=== PATIENT | male | born 1990 | race Caucasian/White ===

== ENCOUNTER 2022-06-02 09:22 | Emergency (ER) | payer MEDICAID, SELFPAY ==
--- NOTE | 2022-06-02 09:29 | ED.OVERDOSE ---
HPI - Overdose General Chief Complaint: Overdose Stated Complaint: OVERDOSE Time Seen by Provider: 06/02/22 09:28 Source: patient Mode of arrival: EMS Limitations: no limitations History of Present Illness HPI Narrative: 31 yo male using cocaine IV last night comes in with c/o using IV cocaine all night started to feel dizzy and nauseated. The female he was with states she gave him narcan but then told him it didn't spray and EMS never saw the device on scene. The female is also here under the influence complaint: other (substance abuse) Onset (ago): day(s) (symptoms in the past hour) Context: Accidental Overdose: wanted to get high Associated symptoms: nausea/vomiting and other (felt dizzy, passed out) Treatments Prior to Arrival: narcan (supposedly) Related Data Allergies Allergy/AdvReac Type Severity Reaction Status Date / Time No Known Allergies Allergy Verified 06/02/22 09:36 Review of Systems Review of Systems: Constitutional : No Weight loss, No Fever, No Chills ENT/Mouth : No sore throat, No Rhinorrhea Eyes: No Swelling, No Redness Cardiovascular : No Chest Pain, No SOB, NoEdema Respiratory : No Cough, No Sputum, No Wheezing Gastrointestinal : Positive Nausea, Positive Vomiting, no Diarrhea, no abdominal Pain, No Hematochezia, No Melena Genitourinary : No Dysuria, No Urinary Frequency, No Hematuria, No Urgency Musculoskeletal : No joint pain, No Myalgias, No Joint Swelling Skin : No Skin Lesions, No rash Neuro : No Weakness, No Numbness, pos Dizziness, No Headache Psych : No Anxiety/Panic, No Depression Heme/Lymph: No Bruising, No Lymphadenopathy Endocrine : No Polyuria, No Polydipsia All other systems reviewed and are negative. [facility] Past Medical History Attestation statement: The following information was validated with the patient. Medical History Active substance abuse Social History Social History (Updated 06/02/22 @ 09:42 by Nicole Lloyd DO) Patient Tobacco Use Status: Tobacco use Unknown Use of substances other than those prescribed or required for medical reasons: Yes Substance Use Type: Crack/Cocaine Advance Directives: No Advance Directives Information Provided: Yes Physical Exam Vital Signs: Vital Signs: BMI result Body Mass Index 32.7 Appearance: Alert. Oriented X3. No acute distress. Anxious, dry heaving Eyes: Pupils equal, round and reactive to light. ENT: Pharynx normal. Neck: Normal inspection. Neck supple. CVS: Normal heart rate and rhythm. Pulses normal. Respiratory: No respiratory distress. Breath sounds normal. Abdomen: Soft and nontender. Skin: Skin warm and diaphoretic Normal skin color. Normal skin turgor. Extremities: No lower extremity edema. No calf ttp Neuro: Oriented X 3. No motor deficit. No sensory deficit. Course Course Course Narrative: observed x 2 hours, no repeat overdose declines SUDE evaluation will send home with narcan stable for DC MDM - Overdose MDM Narrative Medical decision making narrative: 31 yo male with cocaine abuse became dizzy and sounds like he passed out - feels anxious and nauseated denies CP at this time will obtain EKG, labs, treat with zofran and ativan - basic labs, observe. He agrees to drug screen to see if cocaine had fentanyl in it. Lab Data Result diagrams: 06/02/22 10:35 06/02/22 10:35 Labs: Lab Results 06/02/22 06/02/22 06/02/22 Range/Units 10:35 10:35 10:35 WBC 7.1 (4.8-10.8) X10*3/uL RBC 5.40 (4.60-5.80) X10*6/uL Hgb 16.4 (14.0-18.0) g/dl Hct 45.2 (42.0-52.0) % MCV 83.7 (80.0-98.0) fL MCH 30.4 (27.0-33.0) pg MCHC 36.3 H (31.0-36.0) g/dl RDW 12.6 (11.0-16.0) % Plt Count 218 (160-400) X10*3/uL MPV 11.0 (9.4-12.4) fL Immature Gran % (Auto) 0.3 (0.0-0.4) % Neut % (Auto) 66.9 (45-73) % Lymph % (Auto) 19.8 L (20-40) % [place] % (Auto) 9.9 (2-11) % Eos % (Auto) 1.8 (0-4) % Baso % (Auto) 1.3 (0-2) % Lymph # (Auto) 1.4 (1.2-4.9) X10*3/uL [place] # (Auto) 0.7 (0.1-1.2) X10*3/uL Eos # (Auto) 0.1 (0.0-0.4) X10*3/uL Baso # (Auto) 0.1 (0.0-0.2) X10*3/uL Abs Immat Gran (auto) 0.02 (0.00-0.03) X10*3/uL Absolute Neuts (auto) 4.7 (2.0-8.3) x10*3/uL Absolute Nucleated RBC 0.000 (0.0-0.012) X10*3/uL Nucleated RBC % (auto) 0.0 (0.0-0.2) /100WBC Sodium 138 (135-145) mmol/L Potassium 3.6 (3.3-5.1) mmol/L Chloride 101 (96-108) mmol/L Carbon Dioxide 26 (22-29) mmol/L Anion Gap 15 (12-20) BUN 11 (9-16) mg/dL Creatinine 0.84 (0.5-1.4) mg/dL Estim Creat Clear Calc 175.4 Estimated GFR > 60 Random Glucose 96 (60-115) mg/dL Calcium 9.7 (8.4-10.2) mg/dL Troponin I High Sens 4.5 (<3.5-35.0) ng/L Urine Opiates Screen (Not Detect) Urine Fentanyl Screen (Not Detect) Ur Barbiturates Screen (Not Detect) Ur Phencyclidine Scrn (Not Detect) Ur Amphetamines Screen (Not Detect) U Benzodiazepines Scrn (Not Detect) Urine Cocaine Screen (Not Detect) U Marijuana (THC) Screen (Not Detect) COVID-19 ([facility]) (Negative) COVID-19 Clin Com 06/02/22 06/02/22 Range/Units 10:35 10:35 WBC (4.8-10.8) X10*3/uL RBC (4.60-5.80) X10*6/uL Hgb (14.0-18.0) g/dl Hct (42.0-52.0) % MCV (80.0-98.0) fL MCH (27.0-33.0) pg MCHC (31.0-36.0) g/dl RDW (11.0-16.0) % Plt Count (160-400) X10*3/uL MPV (9.4-12.4) fL Immature Gran % (Auto) (0.0-0.4) % Neut % (Auto) (45-73) % Lymph % (Auto) (20-40) % [place] % (Auto) (2-11) % Eos % (Auto) (0-4) % Baso % (Auto) (0-2) % Lymph # (Auto) (1.2-4.9) X10*3/uL [place] # (Auto) (0.1-1.2) X10*3/uL Eos # (Auto) (0.0-0.4) X10*3/uL Baso # (Auto) (0.0-0.2) X10*3/uL Abs Immat Gran (auto) (0.00-0.03) X10*3/uL Absolute Neuts (auto) (2.0-8.3) x10*3/uL Absolute Nucleated RBC (0.0-0.012) X10*3/uL Nucleated RBC % (auto) (0.0-0.2) /100WBC Sodium (135-145) mmol/L Potassium (3.3-5.1) mmol/L Chloride (96-108) mmol/L Carbon Dioxide (22-29) mmol/L Anion Gap (12-20) BUN (9-16) mg/dL Creatinine (0.5-1.4) mg/dL Estim Creat Clear Calc Estimated GFR Random Glucose (60-115) mg/dL Calcium (8.4-10.2) mg/dL Troponin I High Sens (<3.5-35.0) ng/L Urine Opiates Screen POSITIVE H (Not Detect) Urine Fentanyl Screen POSITIVE H (Not Detect) Ur Barbiturates Screen Not Detected (Not Detect) Ur Phencyclidine Scrn Not Detected (Not Detect) Ur Amphetamines Screen Not Detected (Not Detect) U Benzodiazepines Scrn Not Detected (Not Detect) Urine Cocaine Screen POSITIVE H (Not Detect) U Marijuana (THC) Screen Not Detected (Not Detect) COVID-19 ([facility]) Negative (Negative) COVID-19 Clin Com See Note ECG Data Attestation: I personally reviewed and interpreted this ECG as follows: ECG interpretation date: 06/02/22 ECG interpretation time: 10:08 Interpretation: Rate: 58 Rhythm: sinus bradycardia [place]: normal Normal P waves. Normal ORIN. Normal QRS complex. ST T wave : normal no CORNELIA qTC: normal prior studies: no acute ischemia The study has been interpreted contemporaneously by me. Discharge Plan Discharge Clinical Impression: Cocaine abuse Drug overdose Qualifiers: Encounter type: initial encounter Injury intent: accidental or unintentional Qualified Code(s): T50.901A - Poisoning by unspecified drugs, medicaments and biological substances, accidental (unintentional), initial encounter Patient Disposition: Home, Self-Care Instructions: Cocaine Abuse (ED), Adult Overdose (ED) Additional Instructions: return to ED for any worsening symptoms or concerns your cocaine had fentanyl in it please do not use the rest, please stop using drugs at this time carry narcan with you
--- NOTE | 2022-06-02 09:36 | ECG_ITS ---
Test Reason : weakness Blood Pressure : / mmHG Vent. Rate : 058 BPM Atrial Rate : 058 BPM P-R Int : 142 ms QRS Dur : 094 ms QT Int : 486 ms P-R-T Axes : 012 021 027 degrees QTc Int : 477 ms Sinus bradycardia Otherwise normal ECG No previous ECGs available Referred By: Nicole Lloyd Electronically Signed By:JP GARCIA
[2022-06-02 10:01] VITALS: BP 140/80; PULSE 101; O2SAT 99; BMI 32.7
[2022-06-02] MEDS: Ondansetron ODT 4 MG TAB.RAPDIS TRANSLINGU (10:34)
[2022-06-02] MEDS: LORazepam 1 MG TABLET PO (10:34)
[2022-06-02] MEDS: 0.9 % Sodium Chloride 1,000 ML 999 ML IV (10:37)
[2022-06-02 10:41] LABS: MANUAL DIFF FLAG NO
[2022-06-02 10:45] LABS: Basophils Absolute Auto 0.1 X10*3/uL (0.0-0.2); Basophils Percent Auto 1.3 % (0-2); Eosinophils Absolute Auto 0.1 X10*3/uL (0.0-0.4); Eosinophils Percent Auto 1.8 % (0-4); Hematocrit 45.2 % (42.0-52.0); Hemoglobin 16.4 g/dl (14.0-18.0); Imm Gran Abs Auto 0.02 X10*3/uL (0.00-0.03); Imm Gran Pct Auto 0.3 % (0.0-0.4); Lymphocytes Absolute Auto 1.4 X10*3/uL (1.2-4.9); Lymphocytes Percent Auto 19.8 % (20-40); Mean Corpuscular HGB Conc 36.3 g/dl (31.0-36.0); Mean Corpuscular Hemoglobin 30.4 pg (27.0-33.0); Mean Corpuscular Volume 83.7 fL (80.0-98.0); Monocytes Absolute Auto 0.7 X10*3/uL (0.1-1.2); Monocytes Percent Auto 9.9 % (2-11); Neutrophils Absolute Auto 4.7 x10*3/uL (2.0-8.3); Neutrophils Percent Auto 66.9 % (45-73); Platelet Count 218 X10*3/uL (160-400); Red Cell Distribution Width 12.6 % (11.0-16.0); White Blood Count 7.1 X10*3/uL (4.8-10.8)
[2022-06-02 10:58] LABS: Anion Gap 15 (12-20); Blood Urea Nitrogen 11 mg/dL (9-16); Calcium 9.7 mg/dL (8.4-10.2); Carbon Dioxide 26 mmol/L (22-29); Chloride 101 mmol/L (96-108); Creatinine Clr Calc Pharmacy 175.4; Estimated Glomerular Filt Rate > 60; Glucose Random 96 mg/dL (60-115); Potassium 3.6 mmol/L (3.3-5.1); Sodium 138 mmol/L (135-145)
[2022-06-02 11:04] LABS: COVID-19 Test Negative (Negative)
[2022-06-02 11:05] LABS: Troponin-I High Sensitivity 4.5 ng/L (<3.5-35.0)
[2022-06-02 11:06] LABS: Amphetamine Screen Urine Not Detected (Not Detect); Barbiturates, Urine Not Detected (Not Detect); Benzodiazepines Screen Urine Not Detected (Not Detect); Cannabinoid Screen Urine Not Detected (Not Detect); Cocaine Screen Urine POSITIVE (Not Detect); Fentanyl, urine POSITIVE (Not Detect); Opiate Screen Urine POSITIVE (Not Detect); Phencyclidine Screen Urine Not Detected (Not Detect)
== END 2022-06-02 12:25 | disposition home or self-care (01) ==
PROVIDERS: Emergency Provider Emergency Medicine
DX: T40.5X1A Poisoning by cocaine, accidental (unintentional), initial encounter (principal); Y92.9 Unspecified place or not applicable; R42 Dizziness and giddiness; F14.19 Cocaine abuse with unspecified cocaine-induced disorder; Z20.822 Contact with and (suspected) exposure to COVID-19; Z79.899 Other long term (current) drug therapy
CPT/HCPCS: 80048; 80307; 84484; 85025; 87635; 93005; 96360; 99284; 99285

== ENCOUNTER 2023-01-06 09:01 | Emergency (ER) | payer OTHER, SELFPAY ==
[2023-01-06 09:09] VITALS: BP 132/80; BP 134/68; PULSE 104; PULSE 69; RESP 18; TEMP 37; O2SAT 97; O2SAT 99; BMI 30.5
--- NOTE | 2023-01-06 09:34 | ED_ITS ---
HPI - General Adult General Chief complaint: ETOH/Substance Use Stated complaint: OD Cocaine Per EMS Time Seen by Provider: 01/06/23 09:29 Source: patient Mode of arrival: EMS Limitations: no limitations History of Present Illness HPI narrative: Pt states used cocain all night ,then ingested 1 pill ,then states isela I narcan my self and after using narcan feels anxious Onset (ago): hour(s) (6) Radiation: non-radiation Severity: mild Exacerbating factors: none Associated symptoms: denies other symptoms Treatments prior to arrival: none Related Data Allergies Allergy/AdvReac Type Severity Reaction Status Date / Time No Known Allergies Allergy Verified 01/06/23 09:15 Review of Systems Constitutional: Constitutional: Denies fever(s) and Denies headache(s) Eyes: Eyes: Denies blurry vision ENT: Denies headache(s) Cardiovascular: Cardiovascular: Denies chest pain Gastrointestinal: Gastrointestinal: Denies vomiting Neurologic: Denies headache(s) Psychiatric: Psychiatric: Reports anxiety PMFSH Past Medical History PMFSH Narrative: Polysubstance abuse Medical History Active substance abuse Social History Social History Patient Tobacco Use Status: Tobacco use Unknown Substance Use Type: Crack/Cocaine Advance Directives: No Advance Directives Information Provided: Yes Physical Exam ED Vital Signs: Vital Signs - 24 hr 01/06/23 09:09 01/06/23 12:27 Temperature 98.6 F Pulse Rate 69 83 Respiratory Rate 18 18 Blood Pressure 134/68 144/75 H Pulse Oximetry 97 96 Oxygen Delivery Method Room Air Room Air BMI result Body Mass Index 30.5 Const General: cooperative and alert Nutritional Appearance: well nourished Orientation/consciousness: patient oriented x3 Limitations: no limitations HENMT Head: Yes normal to inspection Ears: hearing grossly normal bilaterally General nose exam: Normal external nose present Face and sinus: Yes normal facial exam Mouth: Normal oral and palatal mucosa present Throat: Yes posterior oropharynx normal Neck Neck: Yes normal visual inspection Chest Chest palpation & inspection: normal inspection of the chest Resp Effort & Inspection: normal respiratory effort Auscultation: clear to auscultation bilaterally Cardio Jugular venous distension: no JVD Rate: regular rate Rhythm: regular rhythm GI Inspection: Yes normal to inspection Palpation (GI): Soft to palpation, not firm, nontender and no guarding Auscultation: normal bowel sounds Skin General skin exam: no rashes or lesions noted and elasticity normal Lesions: no lesions Rashes: no rashes Neuro General: patient oriented x3 Cranial nerves: Yes CN's II-XII intact bilaterally Course Reevaluation(s) Reevaluation #1: seen by crisis cleared for d/c refuse detox Time: 12:15 Medications Administered Discontinued Medications Generic Name Dose Route Start Last Admin Trade Name Flo PRN Reason Stop Dose Admin Ondansetron HCl 4 mg 01/06/23 09:33 01/06/23 09:45 Ondansetron Odt 4 Mg Tab.Rapdis TRANSLINGU 01/06/23 09:34 4 mg ONCE ONE Administration Medical Decision Making Medical Decision Making [facility] Narrative: presented anxius after using cocain/opioids and narcan will observe ,will c onsult care team and reassess Differential Diagnosis Differential Diagnoses: The differential diagnosis associated with the presentation includes overdose/anxiety/depresion Lab Data 01/06/23 10:39 01/06/23 10:39 Labs: Lab Results 01/06/23 01/06/23 01/06/23 Range/Units 10:39 10:39 10:39 WBC 7.7 (4.8-10.8) X10*3/uL RBC 5.18 (4.60-5.80) X10*6/uL Hgb 15.5 (14.0-18.0) g/dl Hct 44.4 (42.0-52.0) % MCV 85.7 (80.0-98.0) fL MCH 29.9 (27.0-33.0) pg MCHC 34.9 (31.0-36.0) g/dl RDW 12.6 (11.0-16.0) % Plt Count 212 (160-400) X10*3/uL MPV 10.5 (9.4-12.4) fL Immature Gran % (Auto) 0.4 (0.0-0.4) % Neut % (Auto) 74.9 H (45-73) % Lymph % (Auto) 11.6 L (20-40) % [place] % (Auto) 11.2 H (2-11) % Eos % (Auto) 1.3 (0-4) % Baso % (Auto) 0.6 (0-2) % Lymph # (Auto) 0.9 L (1.2-4.9) X10*3/uL [place] # (Auto) 0.9 (0.1-1.2) X10*3/uL Eos # (Auto) 0.1 (0.0-0.4) X10*3/uL Baso # (Auto) 0.1 (0.0-0.2) X10*3/uL Abs Immat Gran (auto) 0.03 (0.00-0.03) X10*3/uL Absolute Neuts (auto) 5.8 (2.0-8.3) x10*3/uL Absolute Nucleated RBC 0.000 (0.0-0.012) X10*3/uL Nucleated RBC % (auto) 0.0 (0.0-0.2) /100WBC Sodium 135 (135-145) mmol/L Potassium 4.0 (3.3-5.1) mmol/L Chloride 99 (96-108) mmol/L Carbon Dioxide 22 (22-29) mmol/L Anion Gap 18 (12-20) BUN 9 (9-16) mg/dL Creatinine 0.75 (0.5-1.4) mg/dL Estim Creat Clear Calc 188.4 Estimated GFR > 60 Random Glucose 142 H (60-115) mg/dL Calcium 9.1 D (8.4-10.2) mg/dL Total Bilirubin 1.4 H (0.0-1.0) mg/dL AST 34 (5-37) U/L ALT 35 (0-40) U/L Alkaline Phosphatase 90 (39-117) U/L Total Protein 7.1 (6.5-8.0) g/dL Albumin 4.2 (3.5-5.0) g/dL Urine Opiates Screen Not Detected (Not Detect) Urine Fentanyl Screen POSITIVE H (Not Detect) Ur Barbiturates Screen Not Detected (Not Detect) Ur Phencyclidine Scrn Not Detected (Not Detect) Ur Amphetamines Screen Not Detected (Not Detect) U Benzodiazepines Scrn Not Detected (Not Detect) Urine Cocaine Screen POSITIVE H (Not Detect) U Marijuana (THC) Screen Not Detected (Not Detect) Ethyl Alcohol < 10 mg/dL Discharge Plan Discharge Clinical Impression: Drug abuse Patient Disposition: Home, Self-Care Instructions: Polysubstance Abuse (ED) Referrals: Physician,Sherwin J [Primary Care Provider] - 2 days Interventions: ED Discharge Assessment Last Done: 01/06/23 12:27 Discharge Date/Time: 01/06/23 12:28
[2023-01-06] MEDS: Ondansetron ODT 4 MG TAB.RAPDIS TRANSLINGU (09:45)
--- NOTE | 2023-01-06 10:35 | MHC.RECOVRN ---
Met with pt in ED19 to discuss substance use and desire for treatment. Pt laying in bed, asleep, easily awakes to voice. Pt reports using cocaine, 1/8 ounce daily, x 3 days, IV. Pt reports having used cocaine since early 20s, [place], approx 3 years ago began using it INH, and about a year ago began using IV. Pt unable to reports typical pattern of use, states until I run out of money. Pt is not currently working, reports he is supposed to start a job next week in [place]. This morning, pt reports leaving friends motel and finding a unknown capsule under the seat in his car. Pt reports licking the powder contained in the capsule, and it did not taste like cocaine. Pt reports he became scared and after about 5 minutes decided to use Narcan on himself. Upon using Narcan, pt reports throat closing and coughing up blood. Pt reports this was first experience with Narcan. Pt currently feeling chills, anxious, restless. Pt does report intermitted heroin use, has used one bag daily, IN, x 3 days. Pt states I don't really like it but I feel withdrawal after even one day. Pt reports hx ATS, once at [facility], once at [facility], once at [facility]. Pt also reports a few rehab admissions at a private facility in [place]. Pt currently living with grandmother in [place]. Pt unsure of ATS at this time, reports he discharged from a program approx 2 weeks ago. Pt provided with recovery resources and supports, including fentanyl test strips. Discussed harm reduction. Pt requesting to sleep and reconnect in a few hours to decide on ATS. RN aware.
[2023-01-06 10:44] LABS: MANUAL DIFF FLAG NO
[2023-01-06 10:51] LABS: Basophils Absolute Auto 0.1 X10*3/uL (0.0-0.2); Basophils Percent Auto 0.6 % (0-2); Eosinophils Absolute Auto 0.1 X10*3/uL (0.0-0.4); Eosinophils Percent Auto 1.3 % (0-4); Hematocrit 44.4 % (42.0-52.0); Hemoglobin 15.5 g/dl (14.0-18.0); Imm Gran Abs Auto 0.03 X10*3/uL (0.00-0.03); Imm Gran Pct Auto 0.4 % (0.0-0.4); Lymphocytes Absolute Auto 0.9 X10*3/uL (1.2-4.9); Lymphocytes Percent Auto 11.6 % (20-40); Mean Corpuscular HGB Conc 34.9 g/dl (31.0-36.0); Mean Corpuscular Hemoglobin 29.9 pg (27.0-33.0); Mean Corpuscular Volume 85.7 fL (80.0-98.0); Mean Platelet Volume 10.5 fL (9.4-12.4); Monocytes Absolute Auto 0.9 X10*3/uL (0.1-1.2); Monocytes Percent Auto 11.2 % (2-11); Neutrophils Absolute Auto 5.8 x10*3/uL (2.0-8.3); Neutrophils Percent Auto 74.9 % (45-73); Platelet Count 212 X10*3/uL (160-400); Red Blood Count 5.18 X10*6/uL (4.60-5.80); Red Cell Distribution Width 12.6 % (11.0-16.0); White Blood Count 7.7 X10*3/uL (4.8-10.8)
[2023-01-06 11:00] LABS: Amphetamine Screen Urine Not Detected (Not Detect); Barbiturates, Urine Not Detected (Not Detect); Benzodiazepines Screen Urine Not Detected (Not Detect); Cannabinoid Screen Urine Not Detected (Not Detect); Cocaine Screen Urine POSITIVE (Not Detect); Fentanyl, urine POSITIVE (Not Detect); Opiate Screen Urine Not Detected (Not Detect); Phencyclidine Screen Urine Not Detected (Not Detect)
[2023-01-06 11:10] LABS: Alanine Aminotransferase 35 U/L (0-40); Albumin Level 4.2 g/dL (3.5-5.0); Alkaline Phosphatase 90 U/L (39-117); Anion Gap 18 (12-20); Aspartate Amino Transferase 34 U/L (5-37); Bilirubin Total 1.4 mg/dL (0.0-1.0); Blood Urea Nitrogen 9 mg/dL (9-16); Calcium 9.1 mg/dL (8.4-10.2); Carbon Dioxide 22 mmol/L (22-29); Chloride 99 mmol/L (96-108); Creatinine Clr Calc Pharmacy 188.4; Estimated Glomerular Filt Rate > 60; Ethanol < 10 mg/dL; Glucose Random 142 mg/dL (60-115); Sodium 135 mmol/L (135-145); Total Protein 7.1 g/dL (6.5-8.0)
--- NOTE | 2023-01-06 11:35 | PC.NURSE ---
camron aguillon contact info [phone]
--- NOTE | 2023-01-06 12:08 | PC.NURSE ---
care team at the bedside with patient
--- NOTE | 2023-01-06 12:20 | MHC.RECOVRN ---
Pt choosing to discharge home. May attempt ATS from the community. Plan for mom to [address] on Sunday. Pt denies questions or concerns at this time.
[2023-01-06 12:27] VITALS: BP 144/75; PULSE 83; RESP 18; O2SAT 96
== END 2023-01-06 12:28 | disposition home or self-care (01) ==
PROVIDERS: Emergency Provider Emergency Medicine
DX: F19.10 Other psychoactive substance abuse, uncomplicated (principal); F41.9 Anxiety disorder, unspecified
CPT/HCPCS: 36415; 80053; 80307; 82077; 85025; 99283; 99284